=== PATIENT | female | born 1970 | race Caucasian/White ===

== ENCOUNTER 2017-09-04 09:27 | Observation (INO) | payer BC ==
[2017-09-04] MEDS ORDERED: BABY ASPIRIN 81 MG CHEW PO ONE (09:48)
[2017-09-04] MEDS ORDERED: Nitrostat 0.4 MG (ED) SL ONE ×2 (09:48→09:58)
--- NOTE | 2017-09-04 09:57 | ERPHSYRPT ---
- History of Present Illness Time Seen by Provider: 09/04/17 09:40 Historian: patient Exam Limitations: clinical condition Patient Subjective Stated Complaint: here for epigastric pain since 0100 today Triage Nursing Assessment: pt walked in resp easy, skin w/d/p, chest clear,no edema Physician History: PATIENT COMPLAINS OF LOWER STERNAL PRESSURE LIKE PAIN INTERMITTENT X 2 WEEKS, INTERMITTENT SINCE 1:30 AM THIS MORNING, PAIN SCALE 8/10, DENIES DYSPNEA, DIAPHORESIS, RADIATION OF PAIN TO BACK OR SHOULDERS. Timing/Duration: week(s) Activities at Onset: none Location: substernal Chest Pain Radiation: no radiation Severity of Pain-Max: moderate Severity of Pain-Current: moderate Modifying Factors: Improves With: nothing Associated Symptoms: denies symptoms Prior Chest Pain/Cardiac Workup: no prior cardiac workup Nitro Today/Relief: 0.4 mg x 1, provided by ED Aspirin Treatment Today: no aspirin today, 81 mg x 4, provided by ED Allergies/Adverse Reactions: No Known Drug Allergies Allergy (Verified 09/04/17 09:36) Home Medications: PANTOPRAZOLE 40 mg Tablet [Protonix 40MG Tablet] 40 mg DAILY 09/04/17 [ History] Hx Tetanus, Diphtheria Vaccination/Date Given: No Hx Influenza Vaccination/Date Given: No Hx Pneumococcal Vaccination/Date Given: No Immunizations Up to Date: Yes - Review of Systems Constitutional: No Fever, No Chills Eyes: No Symptoms Ears, Nose, & Throat: No Symptoms Respiratory: No Symptoms, No Cough, No Dyspnea Cardiac: Chest Pain, No Edema, No Syncope Abdominal/Gastrointestinal: No Symptoms, No Abdominal Pain, No Nausea, No Vomiting, No Diarrhea Genitourinary Symptoms: No Symptoms, No Dysuria Musculoskeletal: No Symptoms, No Back Pain, No Neck Pain Skin: No Symptoms, No Rash Neurological: No Dizziness, No Focal Weakness, No Sensory Changes Psychological: No Symptoms Endocrine: No Symptoms All Other Systems: Reviewed and Negative - Past Medical History Pertinent Past Medical History: No Neurological History: No Pertinent History ENT History: No Pertinent History Cardiac History: No Pertinent History Respiratory History: Other Endocrine Medical History: No Pertinent History Musculoskeletal History: No Pertinent History GI Medical History: Other History: No Pertinent History Psycho-Social History: No Pertinent History Female Reproductive Disorders: No Pertinent History - Past Surgical History Past Surgical History: No - Social History Smoking Status: Current every day smoker How long have you smoked: 10 Exposure to second hand smoke: Yes Drug Use: none Patient Lives Alone: No - Female History Hx Last Menstrual Period: 3 weeks go Hx Now: (unknown) - Nursing Vital Signs Nursing Vital Signs: Initial Vital Signs Temperature 97.9 F 09/04/17 09:31 Pulse Rate 70 09/04/17 09:31 Respiratory Rate 18 09/04/17 09:31 Blood Pressure 147/87 09/04/17 09:31 O2 Sat by Pulse Oximetry 100 09/04/17 09:31 Pain Scale Pain Intensity 2 - Physical Exam General Appearance: no apparent distress, alert Eye Exam: PERRL/EOMI, eyes nml inspection Ears, Nose, Throat Exam: normal ENT inspection, moist mucous membranes Neck Exam: normal inspection, non-tender, supple, full range of motion Respiratory Exam: normal breath sounds, lungs clear, No respiratory distress Cardiovascular Exam: regular rate/rhythm, normal heart sounds Gastrointestinal/Abdomen Exam: soft, normal bowel sounds, other (NONTENDER, NO PALPABLE MASSES), No tenderness, No mass Back Exam: normal inspection, No CVA tenderness, No vertebral tenderness Extremity Exam: normal inspection, normal range of motion Neurologic Exam: alert, oriented x 3, cooperative, normal mood/affect, sensation nml, No motor deficits Skin Exam: normal color, warm, dry SpO2: 100 Oxygen Delivery: Room Air - Course EKG Interpreted by Me: Sinus Rhythm, NORMAL AXIS Ordered Tests: Active Orders 24 hr Category Date Time Status Shelter Case Manager STAT Care 09/04/17 09:49 Active EKG-ER Only STAT Care 09/04/17 09:48 Active IV Insertion STAT Care 09/04/17 09:48 Active Oxygen-ED Only NASAL CANNULA 2 lpm Care 09/04/17 09:48 Active CHEST 1 VIEW (PORTABLE) Stat Exams 09/04/17 09:49 Completed CBC W DIFF Stat Lab 09/04/17 09:41 Completed CMP Stat Lab 09/04/17 09:41 Completed HCG,QUALITATIVE URINE Stat Lab 09/04/17 10:58 Completed MAGNESIUM Stat Lab 09/04/17 09:41 Completed PROTIME WITH INR Stat Lab 09/04/17 09:41 Completed TROPONIN Q3H Lab 09/04/17 09:41 Completed TROPONIN Q3H Lab 09/04/17 13:00 Ordered TROPONIN Q3H Lab 09/04/17 16:00 Ordered TROPONIN Q3H Lab 09/04/17 19:00 Ordered TROPONIN Q3H Lab 09/04/17 22:00 Ordered Transfer Order Routine Transfer 09/04/17 Ordered Medication Summary Generic Name Dose Route Start Last Admin Trade Name Ana PRN Reason Stop Dose Admin Sodium Chloride 1,000 mls @ 50 mls/hr 09/04/17 10:00 09/04/17 10:01 Sodium Chloride 0.9% 1000 Ml IV 10/04/17 09:59 50 mls/hr .Q20H IZZY Administration Morphine Sulfate 4 mg 09/04/17 12:06 Morphine Sulfate 4 Mg Inj IV 09/09/17 12:05 Q4H PRN PAIN Discontinued Medications Generic Name Dose Route Start Last Admin Trade Name Ana PRN Reason Stop Dose Admin Al Hydrox/Mg Hydrox/Simethicone Confirm 09/04/17 10:26 Maalox Es 30 Ml Unit Dose Administered 09/04/17 10:27 Dose 30 ml .ROUTE .STK-MED ONE Aspirin 324 mg 09/04/17 09:48 09/04/17 10:00 Baby Aspirin 81 Mg Chew PO 09/04/17 09:49 324 mg STAT ONE Administration Aspirin Confirm 09/04/17 09:58 Baby Aspirin 81 Mg Chew Administered 09/04/17 09:59 Dose 324 mg .ROUTE .STK-MED ONE Lidocaine HCl Confirm 09/04/17 10:25 Xylocaine Hcl Viscous * Administered 09/04/17 10:26 Dose 15 ml .ROUTE .STK-MED ONE Magnesium Hydroxide 45 ml 09/04/17 10:21 09/04/17 10:27 Gi Cocktail 45 Ml (Maalox/Lidocaine) PO 09/04/17 10:22 45 ml STAT ONE Administration Morphine Sulfate 4 mg 09/04/17 11:49 09/04/17 12:03 Morphine Sulfate 4 Mg Inj IV 09/04/17 11:50 4 mg STAT ONE Administration Morphine Sulfate Confirm 09/04/17 11:56 Morphine Sulfate 4 Mg Inj Administered 09/04/17 11:57 Dose 4 mg .ROUTE .STK-MED ONE Nitroglycerin 0.4 mg 09/04/17 09:48 09/04/17 10:01 Nitrostat 0.4 Mg (Ed) SL 09/04/17 09:49 0.4 mg STAT ONE Administration Nitroglycerin Confirm 09/04/17 09:58 Nitrostat 0.4 Mg (Ed) Administered 09/04/17 09:59 Dose 0.4 mg SL .STK-MED ONE Ondansetron HCl 4 mg 09/04/17 11:48 09/04/17 12:02 Zofran 4 Mg/2 Ml Vial IV 09/04/17 11:49 4 mg STAT ONE Administration Ondansetron HCl Confirm 09/04/17 11:56 Zofran 4 Mg/2 Ml Vial Administered 09/04/17 11:57 Dose 4 mg .ROUTE .STK-MED ONE Pantoprazole Sodium 40 mg 09/04/17 10:21 09/04/17 10:27 Protonix 40 Mg Iv IV 09/04/17 10:22 40 mg STAT ONE Administration Pantoprazole Sodium Confirm 09/04/17 10:24 Protonix 40 Mg Iv Administered 09/04/17 10:25 Dose 40 mg IV .STK-MED ONE Lab/Rad Data: Laboratory Result Diagrams 09/04/17 09:41 09/04/17 09:41 Laboratory Results 09/04/17 09/04/17 09/04/17 Range/Units 10:58 09:41 09:41 WBC (4.0-10.5) K/mm3 RBC (4.1-5.4) M/mm3 Hgb (12.0-16.0) gm/dl Hct (35-47) % MCV (78-100) fl MCH (26-32) pg MCHC (32-36) g/dl RDW (11.5-14.0) % Plt Count (150-450) K/mm3 MPV (6-9.5) fl Gran % (36.0-66.0) % Eos # (Auto) (0-0.5) Absolute Lymphs (auto) (1.0-4.6) Absolute Monos (auto) (0.0-1.3) Lymphocytes % (24.0-44.0) % Monocytes % (0.0-12.0) % Eosinophils % (0.00-5.0) % Basophils % (0.0-0.4) % Absolute Granulocytes (1.4-6.9) Basophils # (0-0.4) PT 11.9 (9.95-12.35) SECONDS INR 1.02 (0.8-3.0) Sodium (137-145) mmol/L Potassium (3.5-5.1) mmol/L Chloride (98-107) mmol/L Carbon Dioxide (22-30) mmol/L Anion Gap (5-15) MEQ/L BUN (7-17) mg/dL Creatinine (0.52-1.04) mg/dL Estimated GFR ML/MIN Glucose (74-106) mg/dL Calcium (8.4-10.2) mg/dL Magnesium (1.6-2.3) mg/dL Total Bilirubin (0.2-1.3) mg/dL AST (14-36) U/L ALT (0-35) U/L Alkaline Phosphatase (38-126) U/L Troponin I < 0.012 (0.000-0.034) ng/mL Serum Total Protein (6.3-8.2) g/dL Albumin (3.5-5.0) g/dL Urine HCG, Qual NEGATIVE (Negative) 09/04/17 09/04/17 Range/Units 09:41 09:41 WBC 6.6 (4.0-10.5) K/mm3 RBC 4.35 (4.1-5.4) M/mm3 Hgb 12.9 (12.0-16.0) gm/dl Hct 39.2 (35-47) % MCV 90.1 (78-100) fl MCH 29.7 (26-32) pg MCHC 32.9 (32-36) g/dl RDW 13.2 (11.5-14.0) % Plt Count 251 (150-450) K/mm3 MPV 11.4 H (6-9.5) fl Gran % 58.0 (36.0-66.0) % Eos # (Auto) 0.11 (0-0.5) Absolute Lymphs (auto) 2.14 (1.0-4.6) Absolute Monos (auto) 0.52 (0.0-1.3) Lymphocytes % 32.2 (24.0-44.0) % Monocytes % 7.8 (0.0-12.0) % Eosinophils % 1.7 (0.00-5.0) % Basophils % 0.3 (0.0-0.4) % Absolute Granulocytes 3.85 (1.4-6.9) Basophils # 0.02 (0-0.4) PT (9.95-12.35) SECONDS INR (0.8-3.0) Sodium 141 (137-145) mmol/L Potassium 4.2 (3.5-5.1) mmol/L Chloride 106 (98-107) mmol/L Carbon Dioxide 26 (22-30) mmol/L Anion Gap 12.0 (5-15) MEQ/L BUN 13 (7-17) mg/dL Creatinine 0.83 (0.52-1.04) mg/dL Estimated GFR > 60.0 ML/MIN Glucose 136 H (74-106) mg/dL Calcium 9.5 (8.4-10.2) mg/dL Magnesium 1.9 (1.6-2.3) mg/dL Total Bilirubin 0.30 (0.2-1.3) mg/dL AST 27 (14-36) U/L ALT 20 (0-35) U/L Alkaline Phosphatase 90 (38-126) U/L Troponin I (0.000-0.034) ng/mL Serum Total Protein 7.0 (6.3-8.2) g/dL Albumin 4.3 (3.5-5.0) g/dL Urine HCG, Qual (Negative) - Progress Progress Note: 09/04/17 11:56 ADMINISTERED IV NORMAL SALINE 50ML/HR, 4 BABY ASPIRIN , NITROGLYCERIN 0.4MG SL , NO RELIEF, GI COCKTAIL ORALLY, ZOFRAN 4MG, MORPHINE 4MG, PROTONIX 40MG IVPB, Discussed with : Alejandro (DISCUSSED WITH DR VEGAS AT 1200 FOR OBSERVATION) - Departure Time of Disposition: 12:12 Departure Disposition: Observation Clinical Impression: ACUTE CHEST PAIN Condition: Stable Critical Care Time: No Referrals: DEBI HADDAD [Nurse Practioner] -
[2017-09-04] MEDS ORDERED: BABY ASPIRIN 81 MG CHEW ONE (09:58)
[2017-09-04] MEDS ORDERED: Sodium Chloride 0.9% 1000 ML 1,000 ML IV SCH (10:00)
[2017-09-04 10:02] LABS: BASOPHIL % 0.3 % (0.0-0.4); Basophil (Absolute #) 0.02 (0-0.4); Eosinophil % 1.7 % (0.00-5.0); Eosinophil (Absolute #) 0.11 (0-0.5); Granulocyte Absolute (ANC) 3.85 (1.4-6.9); Hematocrit 39.2 % (35-47); Hemoglobin 12.9 gm/dl (12.0-16.0); Lymphocyte (Absolute #) 2.14 (1.0-4.6); Lymphocytes % 32.2 % (24.0-44.0); Mean Cell Volume 90.1 fl (78-100); Mean Corpuscular Hemoglobin 29.7 pg (26-32); Mean Corpuscular Hgb Concent. 32.9 g/dl (32-36); Mean Platelet Volume 11.4 fl (6-9.5); Monocyte (Absolute #) 0.52 (0.0-1.3); Monocytes % 7.8 % (0.0-12.0); Platelet Count 251 K/mm3 (150-450); Red Blood Count 4.35 M/mm3 (4.1-5.4); Red Cell Distribution Width 13.2 % (11.5-14.0); White Blood Count 6.6 K/mm3 (4.0-10.5)
[2017-09-04 10:11] LABS: INR 1.02 (0.8-3.0)
[2017-09-04 10:19] LABS: ALBUMIN 4.3 g/dL (3.5-5.0); ALKALINE PHOSPHATASE 90 U/L (38-126); BLOOD UREA NITROGEN 13 mg/dL (7-17); CHLORIDE 106 mmol/L (98-107); Calcium 9.5 mg/dL (8.4-10.2); Carbon Dioxide 26 mmol/L (22-30); Creatinine 1 0.83 mg/dL (0.52-1.04); Glucose 136 mg/dL (74-106); Potassium 4.2 mmol/L (3.5-5.1); SGOT/AST 27 U/L (14-36); SGPT/ALT 20 U/L (0-35); SODIUM 141 mmol/L (137-145)
[2017-09-04] MEDS ORDERED: GI COCKTAIL 45 ML (Maalox/Lidocaine) PO ONE (10:21)
[2017-09-04] MEDS ORDERED: PROTONIX 40 MG IV IV ONE ×2 (10:21→10:24)
[2017-09-04] MEDS ORDERED: XYLOCAINE HCl Viscous ONE (10:25)
[2017-09-04] MEDS ORDERED: MAALOX ES 30 ML UNIT DOSE ONE (10:26)
--- NOTE | 2017-09-04 11:32 | XRAY ---
Exam: AP upright portable chest film from 09/04/2017. Comparison: AP upright portable chest film from 06/04/2012. Indication: Dyspnea. Findings: The heart size and contour are normal. The oma and mediastinal structures appear unchanged and reveal no abnormal bulky lymphadenopathy. I do note scattered calcifications within the oma and peripheral lungs consistent with old healed granulomatous disease. This appears similar to 06/04/2012. No air space infiltrates, vascular congestion, pneumothorax, or pleural effusion is seen. There is a minimal S-shaped scoliosis within the thoracic spine with slight convexity toward the right at T5-T6 and mild convexity toward the left centered at T10-T11. This is similar to the prior study. Impression: 1. Scattered bilateral perihilar and peripheral small calcified granulomas are seen consistent with old healed granulomatous disease. This is stable as compared to 06/04/2012. 2. No infiltrates, heart failure, or other acute cardiopulmonary disease is seen. 3. Mild stable S-shaped scoliosis.
[2017-09-04] MEDS ORDERED: Zofran 4 MG/2 ML VIAL IV ONE (11:48)
[2017-09-04] MEDS ORDERED: MORPHINE SULFATE 4 MG INJ IV ONE (11:49)
[2017-09-04] MEDS ORDERED: Zofran 4 MG/2 ML VIAL ONE (11:56)
[2017-09-04] MEDS ORDERED: MORPHINE SULFATE 4 MG INJ ONE (11:56)
[2017-09-04] MEDS ORDERED: MORPHINE SULFATE 4 MG INJ IV PRN (12:06)
[2017-09-04] MEDS ORDERED: Nitrostat 0.4 MG Tablet SL PRN (12:58)
[2017-09-04] MEDS ORDERED: Senokot-S Tablet PO PRN (12:58)
[2017-09-04] MEDS ORDERED: TYLENOL 325 MG PO PRN (12:58)
[2017-09-04] MEDS ORDERED: Sodium Chloride 0.9% 500 ML 500 ML IV SCH (12:58)
[2017-09-04] MEDS ORDERED: MILK OF MAGNESIA 30 ML PO PRN (12:58)
[2017-09-04] MEDS ORDERED: MAALOX ES 30 ML UNIT DOSE PO PRN (12:58)
[2017-09-04] MEDS ORDERED: Zofran 4 MG/2 ML VIAL IV PRN (12:58)
[2017-09-04 16:29] LABS: AMYLASE 50 U/L (30-110); LIPASE 46 U/L (23-300)
[2017-09-04] MEDS: NITRO-BID 2% UD PACKETS TOP SCH ×2 (17:25→22:17)
[2017-09-05] MEDS: NITRO-BID 2% UD PACKETS TOP SCH (05:30)
[2017-09-05 06:09] LABS: Risk Ratio 2.6
[2017-09-05 07:02] VITALS: BP 96/58; PULSE 70; O2SAT 99
--- NOTE | 2017-09-05 07:42 | HP ---
CHIEF COMPLAINT: Epigastric pain. HISTORY OF PRESENT ILLNESS: The patient is a 46 year-old white female who had been seen recently by the nurse practitioner and placed on pantoprazole. She had improved for the last ten days until this morning at 0100 hours when she began having more severe abdominal pain. She has tried antacids in the past and has not been helpful. She is generally healthy. She has no medical problems routinely. PAST MEDICAL/SURGICAL HISTORY: HOME MEDICATIONS: Pantoprazole for the last week or so. ALLERGIES: NKDA. PHYSICAL EXAMINATION: The patient's vital signs showed a temperature of 97.9F, pulse 70, respiratory rate 18, blood pressure 147/87. O2 saturations 100% on room air. HEENT: Normocephalic, atraumatic. Pupils equal round reactive to light. Extraocular movements intact. Oropharynx is pink and moist. NECK: Supple without lymphadenopathy, thyromegaly or JVD. CHEST: Clear to auscultation with good air movement bilaterally. HEART: Regular rate and rhythm without murmurs, rubs or gallops. ABDOMEN: Slightly tender in the epigastric region otherwise nontender. No guarding. No rebound. No palpable masses. EXTREMITIES: Without clubbing, cyanosis or edema. NEUROLOGIC: She is alert and oriented x3 with no focal deficits. LAB DATA AND TESTS: The patient is currently on telemetry on Med/Surg. Her HCG was negative. International normalized ratio was 1.02. Metabolic panel nonfasting glucose 136, BUN 13, creatinine 0.83. Liver enzymes were normal. Electrolytes were normal. Alkaline phosphatase is normal. Troponins have been less than 0.012. Hemoglobin 12.9, white blood cell count 6,600, PLT count 251,000. She had a chest x-ray performed that showed scattered perihilar peripheral small calcified granulomas, stable compared to 06/04/2012. No infiltrates. Mild scoliosis. ASSESSMENT: A patient with epigastric pain. She has been placed on telemetry to rule out myocardial infarction. Thus far the troponins have been negative. We will check the amylase and lipase which has not been done. I will order gallbladder ultrasound for the morning. The patient is being gently hydrated with fluids and otherwise has been able to eat a bland lunch.
--- NOTE | 2017-09-05 09:38 | XRAY ---
Exam: Gallbladder ultrasound from 09/05/2017. Comparison: None. Indication: Right upper quadrant abdominal pain. Findings: The gallbladder is distended and reveals multiple echogenic stones which layer posteriorly within the gallbladder lumen and cause posterior acoustical shadowing. The findings are consistent with fairly extensive cholelithiasis. The gallbladder wall measures up to 2.7 mm in thickness which is slightly thicker than usual, but still within normal limits. The proximal common bile duct measures up to 5.8 mm which is at the upper limits of normal to borderline enlarged. I see no intrahepatic biliary duct distention. The liver is of normal size. Doppler blood flow within the portal vein is toward the liver, i.e. normal. No free fluid is seen within the right upper quadrant. The right kidney measures 11.4 cm in length and reveals no definite mass or hydronephrosis. The head and body of the pancreas appear unremarkable. The distal tail of the pancreas was partially obscured by adjacent bowel gas. Impression: 1. Fairly extensive cholelithiasis is seen. The gallbladder wall is a bit thicker than usual measuring up to 2.7 mm, but this is still within normal limits. No pericholecystic edema or fluid is seen. 2. However, the proximal common bile duct measures 5.8 mm in diameter which is towards upper limits of normal to borderline increased. No definite stone is seen within the visualized common bile duct. No intrahepatic biliary duct distention is seen. 3. No other significant findings are seen on the right upper quadrant abdominal ultrasound.
[2017-09-05] MEDS ORDERED: Protonix 40MG Tablet PO SCH (10:00)
[2017-09-05] MEDS ORDERED: PROTONIX 40 MG IV IV SCH (10:00)
[2017-09-05] MEDS ORDERED: Ecotrin 325 MG PO SCH (10:00)
== END 2017-09-05 09:20 | disposition home or self-care (01) ==
LOC: ED 09:27 → MED SURG 12:40
PROVIDERS: ADMIT Family Medicine; ATTEND Family Medicine
DX: K29.70 Gastritis, unspecified, without bleeding (principal); R10.13 Epigastric pain
CPT/HCPCS: 36000; 36415; 71045; 76705; 80053; 80061; 82150; 83690; 83721; 83735; 84484; 84703; 85025; 85610; 93005; 93041; 93268; 93306; 96372; 96374; 96375; 99285; J2270; J2405; A9270-GY; G0378

== ENCOUNTER 2017-09-14 20:50 | Emergency (ER) | payer BC ==
[2017-09-14] MEDS ORDERED: MORPHINE SULFATE 4 MG INJ IV ONE (21:06)
[2017-09-14] MEDS ORDERED: Sodium Chloride 0.9% 1000 ML 1,000 ML IV STA (21:06)
[2017-09-14] MEDS ORDERED: Zofran 4 MG/2 ML VIAL IV ONE (21:06)
[2017-09-14] MEDS ORDERED: MORPHINE SULFATE 4 MG INJ ONE (21:10)
[2017-09-14] MEDS ORDERED: Zofran 4 MG/2 ML VIAL ONE (21:10)
[2017-09-14] MEDS ORDERED: Sodium Chloride 0.9% 1000 ML 1,000 ML ONE (21:10)
--- NOTE | 2017-09-14 21:13 | ERPHSYRPT ---
- History of Present Illness Time Seen by Provider: 09/14/17 21:07 Historian: patient Patient Subjective Stated Complaint: epigastric pain x 1 hour. known gallstones.. has appointment for september 24 to see surgeon. nausea with no vomiting.. constant pain from7 to 4 Triage Nursing Assessment: alert and oriented. staes epigastric pain non radiating. pain on palpation.. staets started 3 hours after eating. nausea with no vominting. Physician History: This is a 46-year-old white female with a recent finding of many gallstones in her gallbladder some gallbladder wall thickening and a gallbladder ultrasound done on September 05, 2017. She arrives with complaint of pain in the epigastric region not associated with shortness of breath no nausea no vomiting . Patient states this came on 1-1/2 hours ago. Patient had eaten potatoes and noodles prior to onset. Past medical history negative other than recent finding of gallstones on her gallbladder ultrasound. Past surgical history is negative. Social history positive tobacco occasional alcohol negative illicit drugs. Timing/Duration: today (1-1/2 hours ago) Activities at Onset: none Quality: aching Abdominal Pain Onset Location: epigastric Pain Radiation: no radiation Severity of Pain-Max: moderate Severity of Pain-Current: moderate Modifying Factors: Worsens With: analgesics, antacids, breathing, coughing, defecating, eating, exercise, lying down, movement, palpation, rest, urinating, vomiting, position, walking Associated Symptoms: other (epigastric abdominal pain), No back, No chest pain, No diaphoresis, No diarrhea, No fever/chills, No fatigue, No headache, No heartburn, No loss of appetite, No nausea, No neck pain, No rash, No shortness of breath, No syncope, No vomiting, No weakness Previous symptoms: same symptoms as today (Recent symptoms September 02, 2017, patient with abnormal gall bladder ultrasound) Allergies/Adverse Reactions: No Known Drug Allergies Allergy (Verified 09/04/17 09:36) Home Medications: Famotidine 20 mg [Pepcid 20 MG] 40 mg PO DAILY 09/14/17 [History] Hx Tetanus, Diphtheria Vaccination/Date Given: No Hx Influenza Vaccination/Date Given: No Hx Pneumococcal Vaccination/Date Given: No - Review of Systems Constitutional: No Fever, No Chills Eyes: No Symptoms Ears, Nose, & Throat: No Symptoms Respiratory: No Cough, No Dyspnea Cardiac: No Chest Pain, No Edema, No Syncope Abdominal/Gastrointestinal: Abdominal Pain, No Nausea, No Vomiting, No Diarrhea , No Constipation, No Hematemesis, No Hematochezia, No Melena, No Dysphagia, No Appetite Changes Genitourinary Symptoms: No Symptoms Musculoskeletal: No Back Pain, No Neck Pain Skin: No Rash Neurological: No Dizziness, No Focal Weakness, No Sensory Changes Psychological: No Symptoms Endocrine: No Symptoms All Other Systems: Reviewed and Negative - Past Medical History Pertinent Past Medical History: Yes Neurological History: No Pertinent History ENT History: No Pertinent History Cardiac History: No Pertinent History Respiratory History: Other Endocrine Medical History: No Pertinent History Musculoskeletal History: No Pertinent History GI Medical History: No Pertinent History History: No Pertinent History Psycho-Social History: No Pertinent History Female Reproductive Disorders: No Pertinent History - Past Surgical History Past Surgical History: Yes Other Surgical History: 1 vaginal - Social History Smoking Status: Current every day smoker How long have you smoked: 20 years Exposure to second hand smoke: No Drug Use: none Patient Lives Alone: No - Female History Hx Now: No - Nursing Vital Signs Nursing Vital Signs: Initial Vital Signs Temperature 98.1 F 09/14/17 20:58 Pulse Rate 87 09/14/17 20:58 Respiratory Rate 16 09/14/17 20:58 Blood Pressure 133/63 09/14/17 20:58 O2 Sat by Pulse Oximetry 98 09/14/17 20:58 Pain Scale Pain Intensity 0 - Physical Exam General Appearance: mild distress Eye Exam: PERRL/EOMI Ears, Nose, Throat Exam: normal ENT inspection, pharynx normal, moist mucous membranes Neck Exam: normal inspection, non-tender, supple, full range of motion Respiratory Exam: normal breath sounds, lungs clear, No respiratory distress Cardiovascular Exam: regular rate/rhythm, normal heart sounds, normal peripheral pulses, capillary refill <2 sec, No murmur Gastrointestinal/Abdomen Exam: soft, normal bowel sounds, tenderness ( epepigastric tendernessigastric tenderness) Back Exam: normal inspection, normal range of motion, No CVA tenderness, No vertebral tenderness Extremity Exam: normal inspection, normal range of motion, pelvis stable Neurologic Exam: alert, oriented x 3, cooperative, longitudinal float operator II-XII nml as tested, normal mood/affect, nml cerebellar function, sensation nml, No motor deficits Skin Exam: normal color, warm, dry SpO2 Interpretation: normal (98%) SpO2: 98 Oxygen Delivery: Room Air - Course Nursing assessment & vital signs reviewed: Yes EKG Interpreted by Me: RATE (74 bpm), Sinus Rhythm, NORMAL AXIS, Other (EKG: Sinus rhythm, 74 bpm, normal axis, no acute ST or T wave changes, normal ekg. compared to 09/05/2017) Ordered Tests: Active Orders 24 hr Category Date Time Status IV Insertion STAT Care 09/14/17 20:57 Active AMYLASE Stat Lab 09/14/17 20:50 Completed CBC W DIFF Stat Lab 09/14/17 20:50 Completed CMP Stat Lab 09/14/17 20:50 Completed LIPASE Stat Lab 09/14/17 20:50 Completed TROPONIN Q3H Lab 09/14/17 20:50 Completed TROPONIN Q3H Lab 09/15/17 01:00 Ordered TROPONIN Q3H Lab 09/15/17 04:00 Ordered TROPONIN Q3H Lab 09/15/17 07:00 Ordered TROPONIN Q3H Lab 09/15/17 10:00 Ordered Medication Summary Discontinued Medications Generic Name Dose Route Start Last Admin Trade Name Freq PRN Reason Stop Dose Admin Sodium Chloride 1,000 mls @ 999 mls/hr 09/14/17 21:06 09/14/17 22:06 Sodium Chloride 0.9% 1000 Ml IV 09/14/17 22:06 Infused .Q1H1M STA Infusion Sodium Chloride Confirm 09/14/17 21:10 Sodium Chloride 0.9% 1000 Ml Administered 09/14/17 21:11 Dose 1,000 mls @ ud .ROUTE .STK-MED ONE Morphine Sulfate 4 mg 09/14/17 21:06 09/14/17 21:13 Morphine Sulfate 4 Mg Inj IV 09/14/17 21:07 4 mg STAT ONE Administration Morphine Sulfate Confirm 09/14/17 21:10 Morphine Sulfate 4 Mg Inj Administered 09/14/17 21:11 Dose 4 mg .ROUTE .STK-MED ONE Ondansetron HCl 4 mg 09/14/17 21:06 09/14/17 21:14 Zofran 4 Mg/2 Ml Vial IV 09/14/17 21:07 4 mg STAT ONE Administration Ondansetron HCl Confirm 09/14/17 21:10 Zofran 4 Mg/2 Ml Vial Administered 09/14/17 21:11 Dose 4 mg .ROUTE .STK-MED ONE Lab/Rad Data: Laboratory Result Diagrams 09/14/17 20:50 09/14/17 20:50 Laboratory Results 09/14/17 09/14/17 09/14/17 Range/Units 20:50 20:50 20:50 WBC 8.3 (4.0-10.5) K/mm3 RBC 4.42 (4.1-5.4) M/mm3 Hgb 13.6 (12.0-16.0) gm/dl Hct 39.5 (35-47) % MCV 89.4 (78-100) fl MCH 30.8 (26-32) pg MCHC 34.4 (32-36) g/dl RDW 13.2 (11.5-14.0) % Plt Count 281 (150-450) K/mm3 MPV 11.7 H (6-9.5) fl Gran % 57.1 (36.0-66.0) % Eos # (Auto) 0.27 (0-0.5) Absolute Lymphs (auto) 2.68 (1.0-4.6) Absolute Monos (auto) 0.56 (0.0-1.3) Lymphocytes % 32.4 (24.0-44.0) % Monocytes % 6.8 (0.0-12.0) % Eosinophils % 3.3 (0.00-5.0) % Basophils % 0.4 (0.0-0.4) % Absolute Granulocytes 4.73 (1.4-6.9) Basophils # 0.03 (0-0.4) Sodium 144 (137-145) mmol/L Potassium 3.8 (3.5-5.1) mmol/L Chloride 107 (98-107) mmol/L Carbon Dioxide 24 (22-30) mmol/L Anion Gap 17.2 H (5-15) MEQ/L BUN 14 (7-17) mg/dL Creatinine 1.18 H (0.52-1.04) mg/dL Estimated GFR 52.2 ML/MIN Glucose 94 (74-106) mg/dL Calcium 9.3 (8.4-10.2) mg/dL Total Bilirubin 0.30 (0.2-1.3) mg/dL AST 179 H (14-36) U/L ALT 171 H (0-35) U/L Alkaline Phosphatase 199 H (38-126) U/L Troponin I < 0.012 (0.000-0.034) ng/mL Serum Total Protein 7.6 (6.3-8.2) g/dL Albumin 4.6 (3.5-5.0) g/dL Amylase 63 (30-110) U/L Lipase 167 (23-300) U/L - Progress Progress: improved Progress Note: 09/14/17 22:35 46-year-old white female with complaints of epigastric pain after eating potatoes and noodles. Patient was noted on September 05 to have gallstones and thickened gallbladder. Patient with normal amylase lipase and white count,. Patient's AST . ALT, and alkaline phosphatase mildly elevated today. Patient improved with normal saline, morphine, Zofran and 1 L of fluids pain- free at this time. Will plan to discharge patient return home, avoid fatty foods,. Will write for [facility] for pain. Patient will need to follow-up with Dr. Allen Friday call his office. Return for acute distress or for severe symptoms. - Departure Time of Disposition: 22:37 Departure Disposition: Home Clinical Impression: Epigastric pain, History of gallstones, Elevated liver enzymes Condition: Fair Critical Care Time: No Referrals: CLAUDIA MEAD [Primary Care Provider] - Additional Instructions: Return home. Plenty of fluids, clear fluids only 24-48 hours if abdominal pain. [place] 5/325 #12 one orally every 4-6 hours as needed for pain. Avoid fatty foods. Follow-up with Dr. Allen call Friday. Return for acute distress or for severe symptoms. Prescriptions: Hydrocodone/Acetaminophen [[place] 5-325 Tablet] 1 tab PO Q4-6HPRN PRN #12 tablet MDD 6 tablets PRN Reason: Pain
[2017-09-14 21:19] LABS: BASOPHIL % 0.4 % (0.0-0.4); Basophil (Absolute #) 0.03 (0-0.4); Eosinophil % 3.3 % (0.00-5.0); Eosinophil (Absolute #) 0.27 (0-0.5); Granulocyte Absolute (ANC) 4.73 (1.4-6.9); Granulocytes % 57.1 % (36.0-66.0); Hematocrit 39.5 % (35-47); Hemoglobin 13.6 gm/dl (12.0-16.0); Lymphocyte (Absolute #) 2.68 (1.0-4.6); Lymphocytes % 32.4 % (24.0-44.0); Mean Cell Volume 89.4 fl (78-100); Mean Corpuscular Hemoglobin 30.8 pg (26-32); Mean Corpuscular Hgb Concent. 34.4 g/dl (32-36); Mean Platelet Volume 11.7 fl (6-9.5); Monocyte (Absolute #) 0.56 (0.0-1.3); Monocytes % 6.8 % (0.0-12.0); Platelet Count 281 K/mm3 (150-450); Red Blood Count 4.42 M/mm3 (4.1-5.4); Red Cell Distribution Width 13.2 % (11.5-14.0); White Blood Count 8.3 K/mm3 (4.0-10.5)
[2017-09-14 21:46] LABS: ALBUMIN 4.6 g/dL (3.5-5.0); ANION GAP 17.2 MEQ/L (5-15); BILIRUBIN,TOTAL 0.3 mg/dL (0.2-1.3); Calcium 9.3 mg/dL (8.4-10.2); Creatinine 1 1.18 mg/dL (0.52-1.04); Potassium 3.8 mmol/L (3.5-5.1); Total Protein 7.6 g/dL (6.3-8.2)
[2017-09-14 21:54] VITALS: O2SAT 98
[2017-09-14] MEDS ORDERED: NORCO 5/325 MG PO ONE (22:45)
[2017-09-14] MEDS ORDERED: NORCO 5/325 MG ONE (22:49)
[2017-09-14 23:08] VITALS: BP 113/73; PULSE 64
== END 2017-09-14 22:57 | disposition home or self-care (01) ==
LOC: ED 20:50
DX: R10.13 Epigastric pain (principal); Z87.19 Personal history of other diseases of the digestive system; R74.8 Abnormal levels of other serum enzymes
CPT/HCPCS: 36000; 36415; 80053; 82150; 83690; 84484; 85025; 96360; 96374; 96375; 99284; J2270; J2405; A9270-GY

== ENCOUNTER 2018-10-20 07:51 | Emergency (ER) | payer BC ==
[2018-10-20 08:08] VITALS: PULSE 67; O2SAT 100
--- NOTE | 2018-10-20 08:45 | XRAY ---
Indication: Low back pain. Comparison: April 29, 2017. 5 views of the lumbar spine again demonstrates normal alignment with minimal L2 endplate spurring, mild bilateral L5-S1 degenerative facet hypertrophy, and calcified splenic granulomas. Interval cholecystectomy. Remaining lumbar spine normal.
--- NOTE | 2018-10-20 09:04 | ERPHSYRPT ---
- History of Present Illness Source: patient Exam Limitations: no limitations Patient Subjective Stated Complaint: STATES HAS BEEN HAVING LOWER BACK PAIN FOR SEVERAL WEEKS. STATES TODAY IS MUCH WORSE. DENIES ANY INJURY OR URINARY SYMPTOMS Triage Nursing Assessment: AMUBLATED TO ROOM PER SELF GUARDING LOWER BACK. SKIN W/D, COLOR NORMAL. DENIES ANY INJURY. [employer]. Physician History: Pt is a 47 y/o female that had back pain for 4 weeks on and off. Pt states, she never saw her PCP for it. As the pain got worse today, the pt came to the ED. There is no change in sensation. No change in urination. No radiation of the pain. Timing/Duration: week(s) Method of Injury: unknown Quality: throbbing Back Pain Location: lumbar spine Severity of Pain-Max: mild Severity of Pain-Current: mild Modifying Factors: Improves With: nothing Associated Symptoms: denies symptoms Allergies/Adverse Reactions: No Known Drug Allergies Allergy (Verified 10/20/18 08:04) Home Medications: No Reportable Medications [No Reported Medications] 10/20/18 [History] Hx Tetanus, Diphtheria Vaccination/Date Given: No Hx Influenza Vaccination/Date Given: No Hx Pneumococcal Vaccination/Date Given: No - Review of Systems Constitutional: No Fever, No Chills Eyes: No Symptoms Ears, Nose, & Throat: No Symptoms Respiratory: No Cough, No Dyspnea Cardiac: No Chest Pain, No Edema, No Syncope Abdominal/Gastrointestinal: No Abdominal Pain, No Nausea, No Vomiting, No Diarrhea Genitourinary Symptoms: No Dysuria Musculoskeletal: Back Pain (L spine) Neurological: No Dizziness, No Focal Weakness, No Sensory Changes - Past Medical History Pertinent Past Medical History: Yes Neurological History: No Pertinent History ENT History: No Pertinent History Cardiac History: No Pertinent History Respiratory History: Other Endocrine Medical History: No Pertinent History Musculoskeletal History: No Pertinent History GI Medical History: Gallbladder Disease History: No Pertinent History Psycho-Social History: No Pertinent History Female Reproductive Disorders: No Pertinent History - Past Surgical History Past Surgical History: Yes Gastrointestinal: Cholecystectomy Other Surgical History: 1 vaginal - Social History Smoking Status: Current every day smoker How long have you smoked: 20 Exposure to second hand smoke: No Drug Use: none Patient Lives Alone: No - Female History Hx Last Menstrual Period: 10/19/18 Hx Now: Yes - Nursing Vital Signs Nursing Vital Signs: Initial Vital Signs Temperature 97.5 F 10/20/18 08:00 Pulse Rate 67 10/20/18 08:00 Respiratory Rate 16 10/20/18 08:00 Blood Pressure 110/91 10/20/18 08:00 O2 Sat by Pulse Oximetry 100 10/20/18 08:00 Pain Scale Pain Intensity 6 - Physical Exam SpO2: 100 - Course Nursing assessment & vital signs reviewed: Yes - Radiology Exams L-Spine X-ray Interpretation: Reviewed by me (L2 endplate spurring. mild b/l L5-S1 degenerative facet hypertrophy.) Ordered Tests: Active Orders 24 hr Category Date Time Status LUMBAR COMPLETE (MIN 4 VIEWS) Stat Exams 10/20/18 08:31 Completed - Progress Progress: unchanged Progress Note: 10/20/18 09:03 Pt was seen and examined. I ordered XR of the L spine. No fractures or acute pathology. Pt was advised to use NSAIDs OTC for pain, and f/u with her PCP, as she might need MRI for diagnosis. Will see patient in: office Counseled pt/family regarding: need for follow-up - Departure Departure Disposition: Home Clinical Impression: Lumbar spine pain Condition: Stable Critical Care Time: No Referrals: CLAUDIA MEAD [Primary Care Provider] - Additional Instructions: Use NSAIDs for pain. F/U with PCP.
[2018-10-20 09:35] VITALS: BP 99/71
== END 2018-10-20 09:38 | disposition home or self-care (01) ==
LOC: ED 07:51
DX: M54.5 Low back pain (principal)
CPT/HCPCS: 72110; 99283